=== PATIENT | male | born 1960 | race Caucasian/White ===

== ENCOUNTER 2016-12-26 20:30 | Emergency (ER) | payer OTHER ==
[~2016-12-26] VITALS: Ht 175.3 cm; Wt 78.0 kg
[2016-12-26 21:10] VITALS: BP 137/82
== END 2016-12-26 21:12 | disposition home or self-care (01) ==
LOC: EMS 20:32
DX: F20.9 Schizophrenia, unspecified (principal); F03.90 Unspecified dementia, unspecified severity, without behavioral disturbance, psychotic disturbance, mood disturbance, and anxiety
CPT/HCPCS: 99284

== ENCOUNTER 2018-12-19 19:10 | Emergency (ER) | payer MEDICAID, OTHER ==
[~2018-12-19] VITALS: Ht 172.7 cm; Wt 81.8 kg
[2018-12-19 19:33] VITALS: BP 158/107
[2018-12-19] MEDS ORDERED: NAPR275T96 PO (19:35)
== END 2018-12-19 21:00 | disposition left against medical advice (07) ==
LOC: EMS 19:10
DX: R51 Headache (principal); R22.0 Localized swelling, mass and lump, head; F20.9 Schizophrenia, unspecified; Z53.21 Procedure and treatment not carried out due to patient leaving prior to being seen by health care provider